=== PATIENT | female | born 1960 | race African-American/Black ===

== ENCOUNTER 2017-11-16 08:52 | Day surgery (SDC) | payer OTHER ==
[2017-11-13 10:20] VITALS: BMI 38.0
[2017-11-16 09:16] LABS: BASO % 1.3 % (0-2.0); EOS % 2.1 % (0-4.5); HEMATOCRIT 41.4 % (32.4-45.2); HEMOGLOBIN 13.8 GM/dL (10.7-15.3); LYMPH % 30.4 % (8-40); MCH 29.9 pg (25.7-33.7); MCHC 33.3 g/dl (32.0-36.0); MEAN CELL VOLUME 89.8 fl (80-96); MEAN PLT VOLUME 7.7 fl (7.5-11.1); MONO % 8.7 % (3.8-10.2); NEUT % 57.5 % (42.8-82.8); PLATELET COUNT 299 K/MM3 (134-434); RDW 13.3 % (11.6-15.6); WHITE BLOOD COUNT 5.5 K/mm3 (4.0-10.0)
[2017-11-16 09:28] LABS: INR 1.07 (0.83-1.09); PROTHROMBIN TIME (PATIENT) 12.1 SEC (9.7-13.0)
[2017-11-16] MEDS ORDERED: PORTA CATH FLUSH 10 ML IVPUSH PRN (09:55)
[2017-11-16] MEDS ORDERED: MIDAZOLAM HCL 2 MG/2 ML SINGLE DOSE VIAL ONE (12:10)
[2017-11-16 14:20] VITALS: TEMP 98.6
[2017-11-16 15:41] VITALS: BP 146/80; PULSE 84
== END 2017-11-16 15:30 | disposition home or self-care (01) ==
LOC: JRADIR 08:52
PROVIDERS: ATTEND Internal Medicine Hematology & Oncology
PROC: 02HV33Z Insertion of Infusion Device into Superior Vena Cava, Percutaneous Approach (ICD-10-PCS; principal; 2017-11-16)
PROC: B518ZZA Fluoroscopy of Superior Vena Cava, Guidance (ICD-10-PCS; 2017-11-16)
PROC: B518ZZZ Fluoroscopy of Superior Vena Cava (ICD-10-PCS; 2017-11-16)
DX: C50.911 Malignant neoplasm of unspecified site of right female breast (principal)
CPT/HCPCS: 36561; 75827; C1751; 36415; 75820-TC-FY; 77001-TC-FY; 85025; 85610; C1788

== ENCOUNTER 2018-05-18 06:51 | Inpatient (IN) | payer OTHER ==
[2018-05-12 18:27] VITALS: BMI 37.2
--- NOTE | 2018-05-17 09:10 | HP ---
Admitting History and Physical - Primary Care Physician PCP: Cristhian Mitchell - Admission Chief Complaint: right breast cancer History of Present Illness: Patient is a 58 yo female noted to have architectural distortion in the upper outer quad of the right breast spanning 3.3 cm, a new mass (.5 cm) in the same area and a suspicious 2.[address] 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 MRI was c/w extensive enhancement in the upper outer quad as well as large right axillary lymph nodes. No contralateral dz noted. Patient underwent neoadjuvant chemo and is genetic negative. She is now presenting for bilateral mastectomy, right snbx, poss andx without reconstruction. History Source: Patient - Past Medical History Cardiovascular: Yes: HTN Rheumatology: Yes: Other - Smoking History Smoking history: Former smoker Have you smoked in the past 12 months: No If you are a former smoker, when did you quit?: 20 y ago - Alcohol/Substance Use Hx Alcohol Use: Yes (occasionally) Home Medications - Allergies Allergies/Adverse Reactions: Allergies Allergy/AdvReac Type Severity Reaction Status Date / Time No Known Allergies Allergy Verified 05/12/18 18:19 - Home Medications Home Medications: Ambulatory Orders Amlodipine Besylate 10 mg PO DAILY 11/16/17 Hydrochlorothiazide [Hctz -] 25 mg PO DAILY 11/16/17 Losartan Potassium 50 mg PO DAILY 11/16/17 Family Disease History - Family Disease History Family Disease History: CA: Sister (pancreastic cancer at 38 and another sister with ovarian cancer) Review of Systems - Review of Systems Constitutional: reports: No Symptoms Cardiovascular: reports: No Symptoms Respiratory: reports: No Symptoms Physical Examination Constitutional: Yes: Well Nourished, Calm Cardiovascular: Yes: Regular Rate and Rhythm Respiratory: Yes: CTA Bilaterally Breast(s): Yes: Other (Breasts are symmetrical without skin changes or nipple discharge. Diffusely nodular and dense without suspicious masses noted bilaterally. Right axillary lymph nodes are soft. No other suspicious adenopathy was noted.) Problem List - Problems (1) Breast cancer, right Code(s): C50.911 - MALIGNANT NEOPLASM OF UNSP SITE OF RIGHT FEMALE BREAST Qualifiers: Estrogen receptor status: negative Patient sex: female Assessment/Plan Plan: Bilateral mastectomy, right snbx, poss andx
[2018-05-18] MEDS ORDERED: ISOSULFAN BLUE 10 MG/ML VIAL SQ ONE (07:30)
[2018-05-18] MEDS ORDERED: BUPIVACAINE HCL/PF 2.5 MG/ML - 30 ML VIAL IJ ONE (07:30)
[2018-05-18] MEDS ORDERED: fentaNYL CITRATE 250 MCG/5 ML VIAL ONE (08:05)
[2018-05-18] MEDS ORDERED: PROPOFOL 20 ML ONE (08:05)
[2018-05-18] MEDS ORDERED: LIDOCAINE HCL/PF 2% SDV 5ML VIAL ONE (08:05)
[2018-05-18] MEDS ORDERED: SUCCINYLCHOLINE CHLORIDE 200 MG/10 ML VIAL ONE (08:05)
[2018-05-18] MEDS ORDERED: DEXAMETHASONE SOD PHOSPHATE 4 MG/1 ML VIAL ONE (08:05)
[2018-05-18] MEDS ORDERED: ONDANSETRON 4 MG/2 ML VIAL ONE (08:05)
[2018-05-18] MEDS ORDERED: ROCURONIUM BROMIDE 50 MG/5 ML VIAL ONE (08:05)
[2018-05-18] MEDS ORDERED: MIDAZOLAM HCL 2 MG/2 ML SINGLE DOSE VIAL ONE (08:17)
[2018-05-18] MEDS ORDERED: SODIUM CHLORIDE 0.9% P/F 10 ML VIAL IJ ONE (08:17)
[2018-05-18] MEDS ORDERED: BUPIVACAINE HCL/PF (5 MG/ML) 30 ML VIAL IJ ONE (08:17)
[2018-05-18] MEDS ORDERED: ceFAZolin SODIUM 1 GM VIAL ONE ×2 (09:14→15:37)
[2018-05-18] MEDS ORDERED: ePHEDrine SULFATE 50 MG/1 ML AMPULE ONE (09:27)
[2018-05-18] MEDS ORDERED: DESFLURANE GAS 240 ML BOTTLE IH ONE (10:23)
[2018-05-18] MEDS ORDERED: GUM MASTIC/STORAX/MSAL/ALCOHOL 1 DRP DROPSBTL MC ONE (13:47)
--- NOTE | 2018-05-18 14:19 | OP ---
DATE OF OPERATION: 05/18/2018 PREOPERATIVE DIAGNOSIS: Right breast cancer with axillary metastasis status post neoadjuvant chemotherapy. POSTOPERATIVE DIAGNOSIS: Right breast cancer with axillary metastasis status post neoadjuvant chemotherapy with left axillary metastasis. PROCEDURE: Bilateral modified radical mastectomies with right sentinel node biopsy. ANESTHESIA: General intubated. ATTENDING SURGEON: Cristhian Patel MD FILTER TANK TENDER HELPER: CINDY Muller ESTIMATED BLOOD LOSS: Minimal. COMPLICATIONS: None. DESCRIPTION OF PROCEDURE: The patient was made aware of the risks and benefits of the procedure and consented. She was placed in supine position. After general anesthesia was induced, the patient was intubated. Then 4 mL of 1% Isosulfan Blue was locally infiltrated into the right subareolar tissue. The operative site was prepped and draped in the usual sterile fashion. Using intraoperative ultrasound, the enlarged left axillary node was identified and localized using a 22-gauge spinal needle. An incision was made in the right axilla. Using blunt and sharp dissection, tissues were dissected down to the needle, which was then followed down to the lymph node. This was surgically excised and submitted for frozen section. While we waited for that, the mastectomy proceeded. An elliptical incision was made around the nipple and skin using electrocautery. Skin flaps were made superior to the clavicle, medial to the sternum, lateral to the latissimus dorsi, and inferior to inframammary fold. Using electrocautery, the breast tissue was taken off the pectoralis muscle extending laterally to the latissimus dorsi. At that time, frozen section was reported as positive for metastasis. An in situ axillary dissection was then performed by going along the lateral chest wall finding the long thoracic nerve and dissecting along its length retracting it medially. Then the thoracodorsal trunk was identified and retracted laterally and the tissues between the 2 were bluntly and sharply dissected away using electrocautery and hemoclips for hemostasis. Additional high lymph nodes were submitted separately. The wound was copiously irrigated with normal saline. Hemostasis maintained by electrocautery. The integrity of the long thoracic nerve and thoracodorsal trunk was ensured after the dissection. Through inferior stab wounds, Cordell-Jeong drains were placed into the wound and sutured to the skin with 2-0 silk. Skin was then closed with interrupted 3-0 Vicryl followed by a running deep 3-0 Vicryl followed by a running subcuticular 4-0 Monocryl. Changing instruments, gown, and gloves, the left side was then approached. An elliptical incision was made around the nipple and skin of the left breast using electrocautery. Skin flaps were made superior to the clavicle, medial to the sternum, lateral to the latissimus dorsi, and inferior to inframammary fold. Using electrocautery, the breast tissue was taken off the pectoralis muscle extending into the latissimus dorsi. This was then submitted with a short suture superior, long suture lateral. Investigation of the axilla, however, revealed 1 firm lymph node. This was sharply dissected free and submitted for frozen section, which was reported as positive for metastasis. A left axillary dissection then commenced. The long thoracic nerve was identified along the lateral chest wall and retracted medially. The thoracodorsal trunk was identified laterally, and the tissues between the 2 were bluntly and sharply dissected free using electrocautery and hemoclips. This was submitted as left axillary contents. The wound was copiously irrigated with normal saline. Hemostasis maintained by electrocautery. Then the wound through inferior stab wounds had No. 10 Cordell-Jeong drains placed and sutured to the skin with 2-0 silk. The skin was then closed with interrupted 2-0 Vicryl followed by running deep dermal 3-0 Vicryl followed by a running subcuticular 4-0 Monocryl. Steri-Strips, sterile dressing, and a compression bra were then applied, and the patient was transferred to the recovery room in excellent condition. Ashish [id number]
[2018-05-18] MEDS ORDERED: ONDANSETRON 4 MG/2 ML VIAL IVPUSH PRN ×2 (14:25→16:02)
[2018-05-18] MEDS ORDERED: oxyCODONE HCL 5 MG TABLET PO PRN ×3 (14:25→16:02)
[2018-05-18] MEDS ORDERED: ACETAMINOPHEN 325 MG TABLET (FP) PO PRN (14:25)
[2018-05-18] MEDS ORDERED: ZOLPIDEM TARTRATE 5 MG TABLET PO PRN (14:25)
[2018-05-18] MEDS ORDERED: DEXTROSE 5%-0.45% SALINE 1,000 ML IV SCH (14:30)
[2018-05-18] MEDS ORDERED: ceFAZolin SODIUM 1 GM VIAL IVPB ONE (15:30)
[2018-05-18] MEDS ORDERED: PROMETHAZINE HCL 25 MG/1 ML VIAL IVPUSH PRN (16:02)
[2018-05-18] MEDS ORDERED: HYDROmorphone HCL CARPU-JECT 1 MG/1 ML DISP.SYRIN IVPUSH PRN (16:02)
[2018-05-18] MEDS: oxyCODONE HCL 5 MG TABLET PO PRN (16:47)
[2018-05-18] MEDS: ACETAMINOPHEN 325 MG TABLET (FP) PO SCH ×2 (16:49→21:32)
[2018-05-18] MEDS: CEFAZOLIN 1 GM/D5W 1 GRAM/50 ML BAG IVPB SCH ×2 (17:00→20:58)
[2018-05-18] MEDS: oxyCODONE HCL 10 MG SUSTAINED ACTING TABLET PO SCH (21:32)
[2018-05-19] MEDS: CEFAZOLIN 1 GM/D5W 1 GRAM/50 ML BAG IVPB SCH ×4 (02:59→21:21)
[2018-05-19] MEDS: ACETAMINOPHEN 325 MG TABLET (FP) PO SCH ×4 (05:02→21:21)
[2018-05-19] MEDS: oxyCODONE HCL 5 MG TABLET PO PRN (05:03)
[2018-05-19 08:00] LABS: HEMATOCRIT 31.7 % (32.4-45.2); HEMOGLOBIN 10.2 GM/dl (10.7-15.3); MCHC 32.2 g/dl (32.0-36.0); MEAN CELL VOLUME 96.3 fl (80-96); MEAN PLT VOLUME 7.8 fl (7.5-11.1); PLATELET COUNT 284 K/MM3 (134-434); RBC 3.29 M/mm3 (3.60-5.2); WHITE BLOOD COUNT 8.9 K/mm3 (4.0-10.8)
[2018-05-19] MEDS: oxyCODONE HCL 10 MG SUSTAINED ACTING TABLET PO SCH ×2 (09:05→21:21)
[2018-05-19] MEDS: HYDROCHLOROTHIAZIDE 25 MG TABLET (FP) PO SCH (09:06)
[2018-05-19] MEDS: LOSARTAN POTASSIUM 50 MG TABLET (FP) PO SCH (09:06)
--- NOTE | 2018-05-19 09:09 | PN ---
Progress Note, Physician Chief Complaint: Bilateral breast cancer with axillary node metastatic dz S/P bilateral modified radical mastectomies no reconstruction ,POD#! History of Present Illness: patient is eating no nausea or vomiting ,was OOB to bathroom, pain controlled with oxycocone - Current Medication List Current Medications: Active Medications Acetaminophen (Tylenol -) 650 mg PO Q4H PRN PRN Reason: FEVER Acetaminophen (Tylenol -) 650 mg PO Q6H [facility] Stop: 05/21/18 16:14 Last Admin: 05/19/18 05:02 Dose: 650 mg Amlodipine Besylate (Norvasc -) 10 mg PO DAILY [facility] Heparin Sodium (Porcine) (Heparin -) 5,000 unit SQ BID [facility] Hydrochlorothiazide (Hctz -) 25 mg PO DAILY [facility] Cefazolin Sodium (Ancef 1 Gm Premixed Ivpb -) 1 gram in 50 mls @ 100 mls/hr IVPB Q6H-IV [facility] Stop: 05/25/18 14:59 Last Admin: 05/19/18 02:59 Dose: 100 mls/hr Dextrose/Sodium Chloride (D5-1/2ns -) 1,000 mls @ 100 mls/hr IV ASDIR [facility] Last Admin: 05/18/18 17:00 Dose: Not Given Losartan Potassium (Cozaar -) 50 mg PO DAILY [facility] Ondansetron HCl (Zofran Injection) 4 mg IVPUSH Q6H PRN PRN Reason: NAUSEA AND/OR VOMITING Last Admin: 05/18/18 16:47 Dose: 4 mg Oxycodone HCl (Roxicodone -) 5 mg PO Q4H PRN PRN Reason: PAIN LEVEL 1-5 Last Admin: 05/19/18 05:03 Dose: 5 mg Oxycodone HCl (Roxicodone -) 10 mg PO Q4H PRN PRN Reason: PAIN LEVEL 6-10 Oxycodone HCl (Oxycontin -) 10 mg PO BID [facility] Stop: 05/21/18 16:03 Last Admin: 05/18/18 21:32 Dose: 10 mg Zolpidem Tartrate (Ambien -) 5 mg PO HS PRN PRN Reason: Insomnia - Objective Vital Signs: Vital Signs Temperature 98.5 F 05/19/18 06:00 Pulse Rate 91 H 05/19/18 06:00 Respiratory Rate 18 05/19/18 06:00 Blood Pressure 122/54 L 05/19/18 06:00 O2 Sat by Pulse Oximetry (%) 96 05/19/18 06:00 Constitutional: Yes: No Distress Breast(s): Yes: Other (Bilateral flaps viable without echymosis, incision intact with steristrips, ANABEL drains functioning well,no signs of infection) Labs: CBC, BMP 05/19/18 07:10 Problem List - Problems (1) Carcinoma of both breasts in female Code(s): C50.911 - MALIGNANT NEOPLASM OF UNSP SITE OF RIGHT FEMALE BREAST; C50.912 - MALIGNANT NEOPLASM OF UNSPECIFIED SITE OF LEFT FEMALE BREAST Qualifiers: Breast location: unspecified site of breast Estrogen receptor status: negative Qualified Code(s): C50.911 - Malignant neoplasm of unspecified site of right female breast; C50.912 - Malignant neoplasm of unspecified site of left female breast; Z17.1 - Estrogen receptor negative status [ER-] Assessment/Plan IV antibiotics oxycodone prn SCD SQ heparin OOb with assistance spirometry VNS evaluation plan for discharge tomorrow
[2018-05-19] MEDS: HEPARIN NA (PORCINE) 5,000 UNITS/ML 1ML VIAL SQ SCH ×2 (09:30→21:22)
[2018-05-19] MEDS: amLODIPine BESYLATE 10 MG TABLET (FP) PO SCH (09:30)
--- NOTE | 2018-05-19 11:16 | PN ---
Progress Note (short form) - Note Progress Note: Anesthesiology Post-op 58 y.o. woman POD#1 s/p bilateral mastectomy with regional and general anesthesia. She is sitting up in bed this morning, doing very well. She has minimal complaints and feels that the pain is well controlled. VSS. 58 y.o. woman with stable post-operative course. Continue management as per primary team.
[2018-05-20] MEDS: CEFAZOLIN 1 GM/D5W 1 GRAM/50 ML BAG IVPB SCH ×2 (03:00→09:57)
[2018-05-20] MEDS: ACETAMINOPHEN 325 MG TABLET (FP) PO SCH ×2 (05:25→09:58)
[2018-05-20 05:49] VITALS: BP 155/70; PULSE 88; TEMP 98.4
--- NOTE | 2018-05-20 09:14 | PN ---
Progress Note, Physician Chief Complaint: Bilateral breast cancer S/P bilateral modified radical mastectomies POD #2 History of Present Illness: Patient ambulating eating well no nausea or vomiting,pain controlled with oxycodone, ready for discharge with VNS - Current Medication List Current Medications: Active Medications Acetaminophen (Tylenol -) 650 mg PO Q4H PRN PRN Reason: FEVER Acetaminophen (Tylenol -) 650 mg PO Q6H [facility] Stop: 05/21/18 16:14 Last Admin: 05/20/18 05:25 Dose: Not Given Amlodipine Besylate (Norvasc -) 10 mg PO DAILY [facility] Last Admin: 05/19/18 09:30 Dose: 10 mg Heparin Sodium (Porcine) (Heparin -) 5,000 unit SQ BID [facility] Last Admin: 05/19/18 21:22 Dose: 5,000 unit Hydrochlorothiazide (Hctz -) 25 mg PO DAILY [facility] Last Admin: 05/19/18 09:06 Dose: 25 mg Cefazolin Sodium (Ancef 1 Gm Premixed Ivpb -) 1 gram in 50 mls @ 100 mls/hr IVPB Q6H-IV [facility] Stop: 05/25/18 14:59 Last Admin: 05/20/18 03:00 Dose: 100 mls/hr Dextrose/Sodium Chloride (D5-1/2ns -) 1,000 mls @ 100 mls/hr IV ASDIR [facility] Last Admin: 05/18/18 17:00 Dose: Not Given Losartan Potassium (Cozaar -) 50 mg PO DAILY [facility] Last Admin: 05/19/18 09:06 Dose: 50 mg Ondansetron HCl (Zofran Injection) 4 mg IVPUSH Q6H PRN PRN Reason: NAUSEA AND/OR VOMITING Last Admin: 05/18/18 16:47 Dose: 4 mg Oxycodone HCl (Roxicodone -) 5 mg PO Q4H PRN PRN Reason: PAIN LEVEL 1-5 Last Admin: 05/19/18 05:03 Dose: 5 mg Oxycodone HCl (Roxicodone -) 10 mg PO Q4H PRN PRN Reason: PAIN LEVEL 6-10 Last Admin: 05/19/18 16:09 Dose: 10 mg Oxycodone HCl (Oxycontin -) 10 mg PO BID [facility] Stop: 05/21/18 16:03 Last Admin: 05/19/18 21:21 Dose: 10 mg Zolpidem Tartrate (Ambien -) 5 mg PO HS PRN PRN Reason: Insomnia - Objective Vital Signs: Vital Signs Temperature 98.4 F 05/20/18 05:47 Pulse Rate 88 05/20/18 05:47 Respiratory Rate 20 05/20/18 05:47 Blood Pressure 155/70 05/20/18 05:47 O2 Sat by Pulse Oximetry (%) 98 05/20/18 05:47 Constitutional: Yes: No Distress Breast(s): Yes: Other (Bilateral breast flaps viable no echymosis incision intact ANABEL drains functioning no signs of infection) Labs: CBC, BMP 05/19/18 07:10 Problem List - Problems (1) Carcinoma of both breasts in female Code(s): C50.911 - MALIGNANT NEOPLASM OF UNSP SITE OF RIGHT FEMALE BREAST; C50.912 - MALIGNANT NEOPLASM OF UNSPECIFIED SITE OF LEFT FEMALE BREAST Qualifiers: Breast location: unspecified site of breast Estrogen receptor status: negative Qualified Code(s): C50.911 - Malignant neoplasm of unspecified site of right female breast; C50.912 - Malignant neoplasm of unspecified site of left female breast; Z17.1 - Estrogen receptor negative status [ER-] Assessment/Plan Ready for discharge today with VNS follow up next week with Dr abraham Cefadroxil BID /percocet prn ANABEL drain training wear binder
[2018-05-20] MEDS: HYDROCHLOROTHIAZIDE 25 MG TABLET (FP) PO SCH (09:55)
[2018-05-20] MEDS: oxyCODONE HCL 10 MG SUSTAINED ACTING TABLET PO SCH (09:55)
[2018-05-20] MEDS: amLODIPine BESYLATE 10 MG TABLET (FP) PO SCH (09:55)
[2018-05-20] MEDS: HEPARIN NA (PORCINE) 5,000 UNITS/ML 1ML VIAL SQ SCH (09:57)
[2018-05-20] MEDS: LOSARTAN POTASSIUM 50 MG TABLET (FP) PO SCH (09:58)
--- NOTE | 2018-05-25 09:43 | PATH ---
Surgical Pathology Report Patient Name: TRIXIE RUVALCABA Med. Rec. #: [id number] /Age/Gender: 1960 (Age: 58) / F Account: [id number] Location: [facility] Taken: 05/18/2018 Received: 05/18/2018 Reported: 06/01/2018 Physicians: Cristhian Mitchell M.D. Specimen(s) Received A: RIGHT AXILLARY SENTINEL NODE (FS) B: LEFT BREAST AXILLARY NODE (FS) C: RIGHT BREAST MODIFIED RADICAL MASTECTOMY D: RIGHT BREAST HIGH AXILLARY NODES E: LEFT BREAST MASTECTOMY F: LEFT BREAST AXILLARY CONTENTS G: LIFE PORT EXPLANT Clinical History s/p neoadjuvant chemotherapy Intraoperative Consult Diagnosis A. Right axillary sentinel node, frozen section: Metastatic carcinoma, involving one lymph node. One lymph node with fibrosis/treatment-related changes and rare scattered atypical epithelioid cells, suspicious for residual tumor. B. Left axillary node, frozen section: Metastatic carcinoma, involving three of three lymph nodes (3/3). (Two lymph nodes are extensively involved by carcinoma and one lymph node shows a rare tumor cell cluster). Ashish Boone, 05/18/18 Final Diagnosis A. LYMPH NODE, RIGHT AXILLARY SENTINEL, EXCISION (FS): METASTATIC CARCINOMA, INVOLVING TWO OF TWO LYMPH NODES (2/2). (SEE NOTE). EXTRANODAL EXTENSION IS PRESENT. Note: One lymph node is almost entirely replaced by metastatic carcinoma, spanning 2.1 cm in greatest dimension (macrometastasis) with focal fibrous scarring, consistent with mild treatment-effect. One lymph node shows prominent fibrous scarring, consistent with marked treatment-effect and numerous scattered tumor cells, present singly and in small clusters; the largest contiguous area of involvement by tumor cells spans approximately 4 mm (macrometastasis). B. LYMPH NODE, LEFT BREAST AXILLARY, EXCISION (FS): METASTATIC CARCINOMA, INVOLVING THREE OF THREE LYMPH NODES (3/3). (SEE NOTE). NO EXTRANODAL EXTENSION IS IDENTIFIED. Note: The metastatic carcinoma appears morphologically similar to metastatic carcinoma involving right axillary nodes and primary tumor in right breast. Two lymph nodes are extensively involved by metastatic carcinoma with the largest contiguous foci of metastatic carcinoma measuring 1.2 cm and 9 mm in greatest dimension, respectively. One lymph node shows isolated tumor cells (ITCS; > 0.2 mm). Few foci of fibrous scarring are noted within one lymph node, suggestive of mild treatment-effect. C. BREAST, RIGHT, MODIFIED RADICAL MASTECTOMY: MULTIFOCAL AND MULTICENTRIC INVASIVE LOBULAR CARCINOMA, PLEOMORPHIC TYPE (TUBULE SCORE: 3/3, NUCLEAR GRADE: 3/3, MITOTIC SCORE: 2/3, TOTAL SCORE: 8/9; AYUSH GRADE 3). (SEE NOTE). THE LARGEST FOCUS OF INVASIVE CARCINOMA MEASURES 3.2 CM IN GREATEST DIMENSION (GROSS MEASUREMENT) AND IS PRESENT IN THE UPPER OUTER QUADRANT (UOQ). IN ADDITION, MULTIPLE FOCI OF INVASIVE CARCINOMA RANGING FROM < 1 MM 2.3 CM IN GREATEST DIMENSION, MICROSCOPICALLY, ARE PRESENT SATELLITE TUMOR NODULES IN THE VICINITY OF THE MAIN TUMOR MASS IN THE UOQ WELL IN THE UPPER INNER QUADRANT (UIQ). RARE FOCI OF DENSE HYALINIZING FIBROSIS ARE PRESENT WITHIN AND ADJACENT TO THE INVASIVE CARCINOMA, SUGGESTIVE OF MINIMAL TREATMENT-EFFECT. LOBULAR CARCINOMA IN SITU (LCIS), PLEOMORPHIC TYPE. SURGICAL MARGINS, SKIN AND NIPPLE ARE UNINVOLVED BY CARCINOMA. LYMPHOVASCULAR INVASION IS IDENTIFIED. METASTATIC CARCINOMA INVOLVING EIGHT OF NINE AXILLARY LYMPH NODES (8/9). FIVE LYMPH NODES SHOW MACROMETASTASES, WITH THE LARGEST CONTIGUOUS FOCI RANGING FROM 3 MM -1.5 CM IN GREATEST DIMENSION, MICROSCOPICALLY. THREE LYMPH NODES SHOW ISOLATED TUMOR CELLS (ITCS: >/= 0.2 MM) PRESENT IN A BACKGROUND OF PROMINENT FIBROUS SCARRING AND HISTIOCYTIC REACTION, CONSISTENT WITH TREATMENT-EFFECT. FOCAL EXTRANODAL EXTENSION IS IDENTIFIED. PATHOLOGIC STAGE (ypTNM): ypT2(m) ypN3a. SEE ALSO INVASIVE CARCINOMA CASE SUMMARY BELOW. Note: Based on morphologic features noted in the invasive carcinoma in the current specimen, E-cadherin and p120 catenin immunostains were performed, which demonstrate lack of staining for E-cadherin and strong cytoplasmic staining for p120 catenin in the tumor cells, supporting lobular phenotype. (E-cadherin immunostains were performed on blocks C5 & C9 at [facility]; E-cadherin, and p120 catenin immunostains were performed on block C6 at [place], [place]: [id number]). In addition, prior, core biopsy from September 2017 ([id number]) was re-reviewed and E-cadherin immunostain was performed on it at [facility], which was negative in the tumor cells, supporting lobular phenotype. D. LYMPH NODES, RIGHT BREAST HIGH AXILLARY, EXCISION: METASTATIC CARCINOMA INVOLVING ELEVEN OF ELEVEN LYMPH NODES (11/11). THREE LYMPH NODES SHOW FOCI OF METASTATIC CARCINOMA RANGING FROM 3-8 MM IN GREATEST DIMENSION MICROSCOPICALLY (MACROMETASTASES). FIVE LYMPH NODES SHOW FOCI OF METASTATIC CARCINOMA RANGING FROM 1-2 MM IN GREATEST DIMENSION, MICROSCOPICALLY (MICROMETASTASES). THREE LYMPH NODES SHOW ISOLATED TUMOR CELLS (ITCS; </= 0.2 MM) PRESENT IN A BACKGROUND OF DENSE FIBROUS SCARRING AND HISTIOCYTIC REACTION, CONSISTENT WITH TREATMENT-EFFECT. NO EXTRANODAL EXTENSION IS IDENTIFIED. E. BREAST, LEFT, TOTAL MASTECTOMY: FEW FOCI OF LOBULAR CARCINOMA IN SITU (LCIS), PLEOMORPHIC AND CLASSICAL TYPE, FOCAL ATYPICAL DUCTAL HYPERPLASIA (ADH), FLAT EPITHELIAL ATYPIA (FEA), COLUMNAR CELL CHANGE AND CYSTS/MICROCYSTS. (SEE NOTE) NIPPLE AND SKIN WITH NO PATHOLOGIC FINDINGS. PATHOLOGIC STAGE (ypTNM): PLEASE SEE SPECIMEN C AND CANCER CASE SUMMARY. Note: E-cadherin immunostains (performed at [facility] on blocks E9 & E18) demonstrate lack of staining in the foci of LCIS, which supports lobular phenotype. F. AXILLARY CONTENTS, LEFT BREAST, EXCISION: TEN LYMPH NODES, NEGATIVE FOR METASTATIC CARCINOMA (0/10). G. LIFE PORT, REMOVAL: LIFE PORT, DESCRIBED (GROSS EXAMINATION ONLY). Comments Breast Invasive Carcinoma: Surgical Pathology Case Summary (Based on AJCC TNM 8 th edition) Right breast: Procedure _X_ Total mastectomy (including nipple-sparing and skin-sparing mastectomy) Specimen Laterality _X_ Right Tumor Size _X_ Greatest dimension of largest invasive focus >1 mm (millimeters): 32 mm Histologic Type _X_ Invasive lobular carcinoma Histologic Grade (Alton Histologic Score) Glandular (Acinar)/Tubular Differentiation _X_ Score 3 (<10% of tumor area forming glandular/tubular structures) Nuclear Pleomorphism _X_ Score 2 Mitotic Rate _X_ Score 2 Overall Grade _X_ Grade 3 (scores of 8 or 9) Tumor Focality _X_ Multiple foci of invasive carcinoma Number of foci: cannot be determined Sizes of individual foci: < 1mm 3.2 cm Ductal Carcinoma In Situ (DCIS) _X_ No DCIS in specimen Margins Invasive Carcinoma Margins _X_ Uninvolved by invasive carcinoma Distance from closest margin (millimeters): 80 mm (gross measurement) Closest margin: deep Regional Lymph Nodes _X_ Involved by tumor cells Number of Lymph Nodes with Macrometastases (>2 mm): 10 Number of Lymph Nodes with Micrometastases (>0.2 mm to 2 mm and/or >200 cells): 5 Number of Lymph Nodes with Isolated Tumor Cells (=0.2 mm and =200 cells): 6 Size of Largest Metastatic Deposit (millimeters): 21 mm Extranodal Extension: _X_ Present Treatment Effect Treatment Effect in the Breast _X_ No definite response to presurgical therapy in the invasive carcinoma Treatment Effect in the Lymph Nodes _X_ Probable or definite response to presurgical therapy in metastatic carcinoma Lymphovascular Invasion _X_ Present Pathologic Stage Classification (pTNM, AJCC 8th Edition) Primary Tumor (Invasive Carcinoma) (pT) _X_ ypT2 (m): Tumor >20 mm but =50 mm in greatest dimension Regional Lymph Nodes (pN) Category (pN) _X_ ypN3a: Metastases in 10 or more axillary lymph nodes (at least 1 tumor deposit larger than 2.0mm) or metastases to the infraclavicular (Level III axillary lymph) nodes Biomarker Studies Results of ER and CA studies performed on this specimen (block C6) at [facility] are as follows: Results of ER,CA,Her2 (IHC) & Ki-67 studies performed on this specimen (block C6) at [place], [place] ([id number]) are as follows: ER (clone [id number] mouse monoclonal antibody by [employer]): 0 % nuclear staining (negative). CA (clone16 mouse monoclonal antibody by [employer]) : 0 % nuclear staining (negative). Her2 IHC (EP3 from [employer], formerly known as [id number], using [employer] Polymer Refine detection kit):0 (negative) Ki67: 35-40% (high proliferative index). Positive and negative controls (internal if applicable) show appropriate results. Formalin fixation and cold ischemic times are within current ASCO/CAP recommendations for ER, CA and Her2 testing. Electronically Signed Abby Rice M.D. Amendments Amended: 06/01/2018 Previous Signout Date: 05/25/2018 Comment: To correct pTN stage in section E. Diagnosis remains unchanged. Gross Description A. Received fresh for frozen section evaluation, labeled "right axillary sentinel node" is a portion of fibroadipose tissue containing two lymph nodes measuring 2.3 x 2.0 x 0.5 cm and 1.5 x 0.8 x 0.3 cm. The larger lymph node is bisected and frozen section is performed on one half of the larger lymph node and the whole smaller lymph node. The lymph nodes are entirely submitted in three cassettes as follows: FSA1- frozen section residue, bisected half of larger lymph node; FSA2- frozen section residue, smaller whole lymph node; A3- remaining half of larger lymph node. B. Received fresh for frozen section evaluation, labeled "left axillary node" is a portion of fibroadipose tissue containing three lymph nodes, ranging from 0.5-1.5 cm in greatest dimension. The largest lymph node is bisected and frozen section is performed on the lymph nodes. The frozen section residual is entirely submitted into cassettes as follows: FSB1- one bisected lymph node; FSB2-two whole lymph nodes. C. Received in formalin, labeled "right breast, modified radical mastectomy" is a 30 x 20 x 9 cm mastectomy specimen with attached portion of axillary contents measuring 8 x 6 x 1.5 cm. The specimen is surmounted anteriorly by a 30 x 18 cm ellipse of nipple-bearing wellington skin. Also present are separate portions of unremarkable skin with adipose tissue measuring 4 cm and 35 cm in length, respectively. A long suture designates the lateral margin and a short suture indicates the superior margin, per the surgeon. The anterior soft tissue margin is inked blue and the deep margin is inked black. Sectioning reveals an ill-defined, nodular to firm mass in the upper outer quadrant (UOQ) measuring 3.2 x 2.7 x 2 cm. The mass is at 3 cm from skin and at 8 cm from the deep margin Also noted are few ill-defined foci of nodular, firm tissue in the upper inner quadrant (UIQ). Remaining breast tissue is comprised predominantly of adipose tissue with rare white fibrous foci and streaks. Sectioning the axillary contents reveals ten possible lymph nodes, ranging from 0.8-2.8 cm in greatest dimension, two of which appear hard and grossly positive. Black [employer] White Printer Operator sections are submitted in thirty-two cassettes as follows: 1-subareolar shave; 2-serially sectioned nipple; 3-8 -bisected full-face section of mass in UOQ (one full-face section each in 3&4, 5&6, 7&8); 9-additional section of mass in UOQ; 10-14- firm nodular tissue in UIQ; 15- lower inner quadrant (LIQ); 16-lower outer quadrant (LOQ); 17-anterior soft tissue margin; 18-deep margin; 19-skin; 20-one bisected lymph node; 21,22-hard lymph nodes, public health representative sections (one lymph node each); 23, 24-, two whole lymph nodes each; 25-threewhole lymph nodes; 26-30- firm nodular tissue adjacent to mass in UOQ; 31,32- additional firm nodular tissue in UIQ. Time to formalin fixation: 50 minutes Total formalin fixation time: approximately 31 hours D. Received in formalin, labeled "right breast high axillary nodes" is a 5.3 x 3 x 1 cm aggregate of fibroadipose tissue. Multiple possible lymph nodes are dissected from the adipose tissue. The lymph nodes are submitted in three cassettes. As follows: 1-one whole lymph node ; 2,3- multiple whole lymph nodes. E. Received in formalin, labeled "left breast, mastectomy" is a 27 x 24 x 7 cm left mastectomy specimen. The specimen is surmounted anteriorly x 27 x 20 cm ellipse of wellington nipple-bearing skin. Also present are several portions of unremarkable skin with adipose tissue measuring 10 cm and 15 cm in length, respectively. A long suture designates the lateral margin and a short suture indicates the superior margin, per the surgeon. Sectioning reveals predominantly unremarkable adipose tissue with few white fibrous foci and streaks. A wellington nodular focus is noted in the lower inner quadrant (LIQ) and few fibrous foci are noted in the upper outer quadrant (UOQ). Black And White Printer Operator sections are submitted in eighteen cassettes as follows: 1-subareolar shave; 2-serially sectioned nipple; 3-7-hdrvmqgu nodular foci in LIQ; 5-6-upper inner quadrant (UIQ); 7-8-lower outer quadrant (LOQ); 9-10-upper outer quadrant (UOQ); 11- skin and anterior soft tissue margin; 12- deep margin;13-18- fibrous foci in UOQ. F. Received in formalin, labeled "left breast axillary contents" is an 8.5 x 6 x 2 cm portion of fibroadipose tissue. Ten lymph nodes, ranging from 0.4-2 cm in greatest dimension are dissected from the adipose tissue. The lymph nodes are submitted in six cassettes as follows: 1-4-one bisected lymph node each; 5,6 - three whole lymph nodes each. G. Received without fixative, labeled "life port explant" is a 3 x 2 x 1 cm purple life port device with attached plastic tubing. For gross examination only. AE/05/18/2018 ebram/05/18/2018
== END 2018-05-20 13:41 | disposition home or self-care (01) | DRG 362 ==
LOC: FM/S 06:51
PROVIDERS: ADMIT Surgery Surgical Oncology; ATTEND Surgery Surgical Oncology
PROC: 0HTV0ZZ Resection of Bilateral Breast, Open Approach (ICD-10-PCS; principal; 2018-05-18 09:31)
PROC: 0HBT0ZX Excision of Right Breast, Open Approach, Diagnostic (ICD-10-PCS; 2018-05-18 09:31)
DX: C50.911 Malignant neoplasm of unspecified site of right female breast (principal); Z87.891 Personal history of nicotine dependence; I10 Essential (primary) hypertension; M16.0 Bilateral primary osteoarthritis of hip; E78.5 Hyperlipidemia, unspecified; C50.912 Malignant neoplasm of unspecified site of left female breast; Z17.1 Estrogen receptor negative status [ER-]
CPT/HCPCS: 36415; 85027; 88300-TC; 88307-TC; 88309-TC; 88331-TC; 88341-TC; 94760; J1644